=== PATIENT | female | born 1980 | race Caucasian/White ===

== ENCOUNTER 2021-06-22 19:28 | Emergency (ER) | payer OTHER ==
[~2021-06-22] VITALS: Ht 167.6 cm; Wt 101.2 kg
[2021-06-22 19:32] VITALS: BP 150/103
--- NOTE | 2021-06-22 19:44 | NUR ---
Dr. Barney examining patient.
[2021-06-22] MEDS ORDERED: BACITRACIN OINT 500 UNITS/GM PKT TP ONE ×2 (19:48→19:50)
--- NOTE | 2021-06-22 19:55 | NUR ---
40/F BIB SELF WITH C/O RIGHT INDEX FINGER LACERATION, STATES SHE REACHED UP TOWARDS A LIGHT A BRUSHED AGAINST BROKEN GLASS. BLEEDING CONTROLLED AT THIS TIME. REPORTS 7/10 PAIN, DENIES TAKING ANYTHING FOR PAIN PRIOR TO ARRIVAL.
[2021-06-22] MEDS ORDERED: MUPI1OIN TP (19:59)
[2021-06-22 20:15] VITALS: BP 150/103
--- NOTE | 2021-06-22 20:15 | NUR ---
Patient discharged with v/s stable. Written and verbal after care instructions given and explained. Patient alert, oriented and verbalized understanding of instructions. Ambulatory with steady gait. All questions addressed prior to discharge. ID band removed. Patient advised to follow up with PMD. Rx of MUPIROCIN given. Patient educated on indication of medication including possible reaction and side effects. Opportunity to ask questions provided and answered.
== END 2021-06-22 20:15 | disposition home or self-care (01) ==
LOC: MED 19:28
DX: S61.210A Laceration without foreign body of right index finger without damage to nail, initial encounter (principal); Z79.899 Other long term (current) drug therapy; Y29.XXXA Contact with blunt object, undetermined intent, initial encounter; Y93.89 Activity, other specified; Y92.89 Other specified places as the place of occurrence of the external cause; Y99.8 Other external cause status
CPT/HCPCS: 99283

== ENCOUNTER 2021-07-03 12:46 | Emergency (ER) | payer OTHER ==
[~2021-07-03] VITALS: Ht 167.6 cm; Wt 104.3 kg
[~2021-07-03 12:46] MED LIST: MUPI1OIN TP
[2021-07-03 12:59] VITALS: BP 131/52
--- NOTE | 2021-07-03 13:37 | NUR ---
40/F BIB SELF WITH C/O RIGHT SIDED PAIN AND RASH SINCE THIS MORNING. PATIENT STATES SHE WOKE UP WITH 6/10 "BURNING" TYPE PAIN AND RED SMALL RASH TO RIGHT SIDE OF ABDOMEN. PATIENT STATES SHE HAS HX OF SHINGLES, STATING "THIS FEELS THE SAME." PATIENT DENIES TAKING ANYTHING AT HOME FOR PAIN, DENIES N/V/D, CP, SOB, FEVER, CHILLS OR URINARY SYMPTOMS.
[2021-07-03] MEDS ORDERED: ACYCLOVIR 200 MG CAP PO ONE (13:40)
[2021-07-03] MEDS ORDERED: predniSONE 20 MG TAB PO ONE (13:40)
[2021-07-03] MEDS ORDERED: ACETAMINOPHEN EXTRA STRENGTH 500 MG TAB PO ONE (13:40)
[2021-07-03] MEDS ORDERED: KETOROLAC 60 MG/2 ML VIAL IM ONE (13:40)
[2021-07-03] MEDS ORDERED: ONDA-24 SL (14:13)
[2021-07-03] MEDS ORDERED: PRED20TA5 PO (14:13)
[2021-07-03] MEDS ORDERED: ACET-8386 PO (14:13)
[2021-07-03] MEDS ORDERED: ACYC-279 PO (14:13)
[2021-07-03 14:47] VITALS: BP 132/96
--- NOTE | 2021-07-03 14:47 | NUR ---
Patient discharged with v/s stable. Written and verbal after care instructions given and explained ABOUT SHINGLES. Patient alert, oriented and verbalized understanding of instructions. Ambulatory with steady gait. All questions addressed prior to discharge. ID band removed. Patient advised to follow up with PMD. Rx of NORCO 5-325, ACYCLOVIR, ZOFRAN AND PREDNISONE given. Patient educated on indication of medication including possible reaction and side effects. EDUCATED TO NOT DRINK OR DRIVE WHILE USING NARCOTICS. Opportunity to ask questions provided and answered.
== END 2021-07-03 14:47 | disposition home or self-care (01) ==
LOC: MED 12:46
DX: B02.9 Zoster without complications (principal); R10.31 Right lower quadrant pain; I10 Essential (primary) hypertension; Z79.899 Other long term (current) drug therapy
CPT/HCPCS: 81002; 81025; 96372; 99284; J1885; J7512

== ENCOUNTER 2021-09-23 18:12 | Emergency (ER) | payer OTHER ==
[~2021-09-23] VITALS: Ht 170.2 cm; Wt 97.5 kg
[~2021-09-23 18:12] MED LIST changes: +ACET-8386 PO; +ACYC-279 PO; +ONDA-188 SL; +PRED20TA5 PO
[2021-09-23 18:58] VITALS: BP 146/84
--- NOTE | 2021-09-23 19:06 | NUR ---
ROBERTO. HANDED ON URINE CUP.
[2021-09-23] MEDS ORDERED: HYDROcodone/APAP 5/325 MG 1 TAB TAB PO ONE (20:30)
[2021-09-23 20:58] LABS: BASOPHILS % (AUTO) 0.5 % (0.0-2.0); EOSINOPHILS # (AUTO) 0.1 K/uL (0-0.4); EOSINOPHILS % (AUTO) 2.4 % (0.0-4.0); HEMATOCRIT 38.9 % (36-48); HEMOGLOBIN 13.3 g/dL (12.0-16.0); LYMPHOCYTES # (AUTO) 1.5 K/uL (2.5-16.5); LYMPHOCYTES % (AUTO) 32.8 % (20.5-51.1); MEAN CORPUSCULAR HEMOGLOBIN 30 pg (27-31); MEAN CORPUSCULAR HGB CONC 34 g/dL (33-37); MEAN CORPUSCULAR VOLUME 88.2 fL (80-94); MONOCYTES # (AUTO) 0.4 K/uL (0.8-1.0); MONOCYTES % (AUTO) 9.1 % (1.7-9.3); NEUTROPHILS # (AUTO) 2.6 K/uL (1.8-7.7); NEUTROPHILS % (AUTO) 55.2 % (42.2-75.2); PLATELET COUNT (AUTO) 270 K/uL (140-450); RED BLOOD CELL COUNT(AUTO) 4.41 MIL/uL (4.20-5.40); RED CELL DISTRIBUTION WIDTH 12.5 % (11.6-13.7); WHITE BLOOD COUNT (AUTO) 4.7 K/uL (4.8-10.8)
[2021-09-23 21:20] LABS: CARBON DIOXIDE 25.6 mmol/L (21-32); CREATININE 0.7 mg/dL (0.6-1.3); POTASSIUM 3.6 mmol/L (3.5-5.1)
[2021-09-23 21:45] LABS: ALBUMIN 3.4 g/dL (3.4-5.0); BILIRUBIN,DIRECT 0.1 mg/dL (0.0-0.3); TOTAL BILIRUBIN 0.5 mg/dL (0.0-1.0)
[2021-09-23] MEDS ORDERED: HYDROcodone/APAP 5/325 MG 1 TAB TAB ONE (22:29)
--- NOTE | 2021-09-23 22:33 | NUR ---
medicated patient per ERMD orders
[2021-09-24 01:24] VITALS: BP 146/84
--- NOTE | 2021-09-24 01:24 | NUR ---
Patient discharged with v/s stable. Written and verbal after care instructions given and explained. Patient verbalized understanding. Ambulatory with steady gait. ID band removed. All questions addressed prior to discharge. Advised to follow up with PMD.
== END 2021-09-24 01:24 | disposition home or self-care (01) ==
LOC: MED 18:12
DX: G89.29 Other chronic pain (principal); R10.9 Unspecified abdominal pain; R11.10 Vomiting, unspecified; I10 Essential (primary) hypertension; F17.290 Nicotine dependence, other tobacco product, uncomplicated; Z79.899 Other long term (current) drug therapy; Z98.890 Other specified postprocedural states; Z90.49 Acquired absence of other specified parts of digestive tract
CPT/HCPCS: 36415; 71045; 80048; 80076; 81002; 81025; 83690; 84484; 84702; 85025; 93005; 99285

== ENCOUNTER 2022-06-26 17:57 | Emergency (ER) | payer OTHER ==
[~2022-06-26] VITALS: Ht 167.6 cm; Wt 88.5 kg
[2022-06-26 18:00] VITALS: BP 146/83
--- NOTE | 2022-06-26 18:31 | NUR ---
41 y/o female, c/o having trouble swallowing, epigastric burning, and anxiety for 3 days. pt states she is worried that something is still stuck in her throat. pmh: gallbladder removal sx, gerd, anxiety, depression nka med: denies
[2022-06-26] MEDS ORDERED: DICYCLOMINE HCL LIQUID 20 MG, ALUMINUM HYD/MAG/SIMETHICONE 30 ML, LIDOCAINE VISCOUS 2% ... PO ONE ×3 (19:00)
[2022-06-26] MEDS ORDERED: LORazepam 1 MG TAB PO ONE (19:00)
[2022-06-26] MEDS ORDERED: DICYCLOMINE HCL LIQUID 10 MG/5 ML UDC ONE (19:04)
[2022-06-26] MEDS ORDERED: ALUMINUM HYD/MAG/SIMETHICONE 30 ML UDC ONE (19:04)
--- NOTE | 2022-06-26 19:19 | NUR ---
GAVE REPORT TO MARY ANN Wlal RN.
== END 2022-06-26 19:10 | disposition home or self-care (01) ==
LOC: MED 17:57
DX: J02.9 Acute pharyngitis, unspecified (principal); F41.9 Anxiety disorder, unspecified; I10 Essential (primary) hypertension; Z79.899 Other long term (current) drug therapy
CPT/HCPCS: 70360; 99283